=== PATIENT | female | born 1985 | race African-American/Black ===

== ENCOUNTER 2017-04-07 21:11 | Emergency (ER) | payer OTHER ==
[~2017-04-07] VITALS: Ht 149.9 cm; Wt 68.0 kg
[2017-04-07 21:20] VITALS: BP 105/62
[2017-04-07 22:13] LABS: Basophils # (auto) 0 uL; Basophils % (auto) 0.6 % (0.0-2.0); Eosinophils # (auto) 0.1 uL; Eosinophils % (auto) 1.8 % (0.0-7.0); Hematocrit 44.2 % (36.0-46.0); Hemoglobin 14.7 g/dL (12.2-16.2); Lymphocytes % (auto) 26.3 % (10.0-50.0); Mean Corpuscular Hemoglobin 28.7 pg (28.0-32.0); Mean Corpuscular Hgb Conc. 33.3 g/dL (32.0-36.0); Mean Corpuscular Volume 86.3 fL (80.0-100.0); Mean Platelet Volume 7.1 fL (7.4-10.4); Monocytes # (auto) 0.9 uL; Monocytes % (auto) 12.4 % (0.0-12.0); Neutrophils # (auto) 4.4 uL; Neutrophils % (auto) 58.9 % (37.0-80.0); Platelet Count (auto) 373 10^3/uL (140-450); Red Cell Distribution Width 13.7 % (11.6-16.0); White Blood Cell 7.5 10^3/uL (4.4-10.8)
[2017-04-07 22:34] LABS: BUN/Creatinine Ratio 13.1; Calcium 8.8 mg/dL (8.5-10.1); Potassium 3.6 mmol/L (3.5-5.1)
[2017-04-07 22:37] LABS: Bilirubin, Total 1.3 mg/dL (0.2-1.0); Total Protein 7.6 g/dL (6.4-8.2)
[2017-04-07 23:23] LABS: Urine Bilirubin Negative (Negative); Urine Blood 2+ /uL (Negative); Urine Ca Oxalate Crystal FEW (None Seen); Urine Color Yellow (Yellow); Urine Glucose Normal (Normal); Urine Ketone TRACE (Negative); Urine Mucus FEW (None Seen); Urine Nitrite Negative (Negative); Urine RBC 1 /hpf (0 - 4); Urine Squamous Epithelial Cell FEW /hpf (<5); Urine pH 5.5 (5.0-8.0)
== END 2017-04-08 05:00 | disposition left against medical advice (07) ==
LOC: ER 21:26
DX: N93.8 Other specified abnormal uterine and vaginal bleeding (principal); M54.5 Low back pain; R11.0 Nausea; Z53.21 Procedure and treatment not carried out due to patient leaving prior to being seen by health care provider
CPT/HCPCS: 36415; 80053; 81001; 81025; 85025

== ENCOUNTER 2017-09-19 15:24 | Emergency (ER) | payer OTHER ==
[~2017-09-19] VITALS: Ht 149.9 cm; Wt 59.0 kg
[2017-09-19 16:28] VITALS: BP 117/73
[2017-09-19] MEDS ORDERED: KETOROLAC TROMETH 60MG/2ML VIAL IM ONE (17:15)
== END 2017-09-19 17:48 | disposition home or self-care (01) ==
LOC: ER 15:30
DX: S46.911A Strain of unspecified muscle, fascia and tendon at shoulder and upper arm level, right arm, initial encounter (principal); E07.9 Disorder of thyroid, unspecified; X58.XXXA Exposure to other specified factors, initial encounter; Y93.89 Activity, other specified; Y92.89 Other specified places as the place of occurrence of the external cause; Y99.8 Other external cause status
CPT/HCPCS: 73030; 96372; 99284; J1885

== ENCOUNTER 2017-12-13 19:23 | Emergency (ER) | payer OTHER ==
[~2017-12-13] VITALS: Ht 149.9 cm; Wt 64.4 kg
[2017-12-13] MEDS ORDERED: ONDANSETRON ODT 4 MG TAB PO ONE ×2 (19:48→20:00)
[2017-12-13 21:42] VITALS: BP 136/90
[2017-12-14] MEDS ORDERED: IOHEXOL 350 MG/ML 100ML IJ ONE (10:40)
== END 2017-12-13 21:51 | disposition home or self-care (01) ==
LOC: ER 19:23
DX: J02.9 Acute pharyngitis, unspecified (principal); E07.9 Disorder of thyroid, unspecified
CPT/HCPCS: 71046; 99284; Q0162

== ENCOUNTER 2018-01-09 15:11 | Emergency (ER) | payer OTHER ==
[~2018-01-09] VITALS: Ht 149.9 cm; Wt 65.3 kg
[2018-01-09 16:41] VITALS: BP 151/57
[2018-01-09] MEDS ORDERED: IBUPROFEN 800 MG TAB PO ONE (17:15)
== END 2018-01-09 17:40 | disposition home or self-care (01) ==
LOC: ER 15:17
DX: S46.001A Unspecified injury of muscle(s) and tendon(s) of the rotator cuff of right shoulder, initial encounter (principal); G89.29 Other chronic pain; M25.511 Pain in right shoulder; F12.10 Cannabis abuse, uncomplicated; E07.89 Other specified disorders of thyroid; X58.XXXA Exposure to other specified factors, initial encounter; Y93.89 Activity, other specified; Y99.8 Other external cause status; Y92.89 Other specified places as the place of occurrence of the external cause

== ENCOUNTER 2018-01-14 10:05 | Emergency (ER) | payer OTHER ==
[~2018-01-14] VITALS: Ht 149.9 cm; Wt 65.3 kg
[2018-01-14 10:18] VITALS: BP 127/78
== END 2018-01-14 11:46 | disposition home or self-care (01) ==
LOC: ER 10:05
DX: G89.29 Other chronic pain (principal); M25.512 Pain in left shoulder; E07.89 Other specified disorders of thyroid; F12.10 Cannabis abuse, uncomplicated

== ENCOUNTER 2022-07-05 23:11 | Emergency (ER) | payer MEDICAID, OTHER ==
[~2022-07-05] VITALS: Ht 154.9 cm; Wt 70.0 kg
[2022-07-06 00:26] VITALS: BP 134/87
== END 2022-07-06 00:35 | disposition left against medical advice (07) ==
LOC: ER 23:11
DX: R53.1 Weakness (principal); Z53.21 Procedure and treatment not carried out due to patient leaving prior to being seen by health care provider
CPT/HCPCS: 93005

== ENCOUNTER 2022-08-20 20:28 | Emergency (ER) | payer MEDICAID ==
[~2022-08-20] VITALS: Ht 149.9 cm; Wt 71.0 kg
[2022-08-20 21:52] VITALS: BP 120/68
[2022-08-20 22:28] LABS: Urine Bacteria NONE SEEN /hpf (None Seen); Urine Blood Negative /uL (Negative); Urine Specific Gravity 1.021 (1.001-1.035); Urine WBC <1 /hpf (0 - 5)
[2022-08-20 23:41] LABS: Basophils # (auto) 0.1 10 ^3/uL (0-0.2); Basophils % (auto) 0.6 % (0.0-2.0); Eosinophils # (auto) 0.1 10 ^3/uL (0-0.8); Eosinophils % (auto) 1.6 % (0.0-7.0); Hematocrit 44.7 % (36.0-46.0); Hemoglobin 14.5 g/dL (12.2-16.2); Lymphocytes # (auto) 2.6 10 ^3/uL (0.4-5.4); Lymphocytes % (auto) 28.5 % (10.0-50.0); Mean Corpuscular Hemoglobin 28.1 pg (28.0-32.0); Mean Corpuscular Hgb Conc. 32.5 g/dL (32.0-36.0); Mean Corpuscular Volume 86.6 fL (80.0-100.0); Monocytes # (auto) 0.7 10 ^3/uL (0-1.3); Monocytes % (auto) 7.1 % (0.0-12.0); Neutrophils # (auto) 5.8 10 ^3/uL (1.6-8.6); Neutrophils % (auto) 62.2 % (37.0-80.0); Red Blood Cells 5.16 10^6/uL (4.0-5.20); Red Cell Distribution Width 13.8 % (11.8-14.3); White Blood Cell 9.3 10^3/uL (4.4-10.8)
[2022-08-21 00:02] LABS: Albumin 3.7 g/dL (3.4-5.0); BUN/Creatinine Ratio 16.5; Calcium 9.3 mg/dL (8.5-10.1); Potassium 3.6 mmol/L (3.5-5.1)
[2022-08-21 00:05] LABS: Total Protein 7.6 g/dL (6.4-8.2)
== END 2022-08-21 04:34 | disposition left against medical advice (07) ==
LOC: ER 20:28
DX: R10.31 Right lower quadrant pain (principal); E03.9 Hypothyroidism, unspecified; Z88.2 Allergy status to sulfonamides; Z88.8 Allergy status to other drugs, medicaments and biological substances
CPT/HCPCS: 36415; 74176; 76856; 80053; 81001; 85025

== ENCOUNTER 2023-11-03 17:58 | Emergency (ER) | payer MEDICAID ==
[~2023-11-03] VITALS: Ht 124.5 cm; Wt 74.3 kg
[2023-11-03 18:15] VITALS: BP 142/75; PULSE 95; RESP 16; O2SAT 99
[2023-11-03 22:01] LABS: Urine Bacteria NONE SEEN /hpf (None Seen); Urine Blood Negative /uL (Negative); Urine Clarity Clear (Clear); Urine Color Yellow (Yellow); Urine Protein, UAD Negative (Negative); Urine Specific Gravity 1.023 (1.001-1.035); Urine Urobilinogen Normal (Negative); Urine WBC <1 /hpf (0 - 5); Urine pH 6.5 (5.0-8.0)
== END 2023-11-04 02:39 | disposition left against medical advice (07) ==
LOC: ER 17:58
DX: R10.31 Right lower quadrant pain (principal); Z53.21 Procedure and treatment not carried out due to patient leaving prior to being seen by health care provider
CPT/HCPCS: 81001